=== PATIENT | male | born 1950 | race Caucasian/White ===

== ENCOUNTER 2024-03-05 09:18 | Day surgery (SDC) | payer OTHER, SELFPAY ==
[2024-03-05] VITALS (17 sets, daily range): BP systolic 136–183; BP diastolic 73–104; BMI 31.6
[2024-03-05] MEDS: NSS 270 ML IV (10:31)
[2024-03-05] MEDS: LOW STRENGTH ASPIRIN 243 MG PO (10:34)
[2024-03-05 10:46] LABS: Glucose - Point of Care 164 mg/dl (70-99)
[2024-03-05 12:02] LABS: ACT-LR - POC 334 Seconds (116-155)
[2024-03-05 12:23] LABS: ACT-LR - POC 276 Seconds (116-155)
[2024-03-05 12:40] LABS: ACT-LR - POC 216 Seconds (116-155)
[2024-03-05] MEDS: ZESTRIL 20 MG PO (13:30)
[2024-03-05] MEDS: APRESOLINE 25 MG PO (13:30)
[2024-03-05 13:38] LABS: Glucose - Point of Care 119 mg/dl (70-99)
--- NOTE | 2024-03-05 14:15 | ITS.CL.ANGIO ---
[employer] - Angioplasty
Angioplasty
Procedure Report:
LEFT HEART CATHETERIZATION
Date of Procedure: 03/05/2024
Procedures performed:
1: Coronary angiography
2: Left ventricular hemodynamic assessment
3: Complex percutaneous coronary intervention of the functional chronic total occlusion of the right coronary artery with placement of a 3.0 x 23 mm Xience drug-eluting stent
Primary Care Physician: Dr. Jhonny Marino
Primary Cardiovascular Surgeon: Dr. Rohan Crawford
INDICATION: The patient is a 73-year-old man with a past medical history significant for hypertension, diabetes mellitus, hyperlipidemia, obstructive sleep apnea and progressive exertional dyspnea with chest tightness suspicious for new angina.
ACCESS: The patient was prepped and draped in usual sterile fashion. A 6 [place] sheath was placed in the right radial artery using the Seldinger over the wire technique.
HEMODYNAMIC FINDINGS (mmHg):
LV(s/d,EDP): 120/4, 21
Ao(s/d,m): 120/72, 94
ANGIOGRAPHIC FINDINGS:
Single-plane Left Ventriculography in [place] Projection: Not done. Echo on February 05 was benign with mild LVH, normal LV systolic function and no significant valvular disease.
Coronary Angiography:
Dominance: Right
Left Main: Medium caliber, widely patent.
Left Anterior Descending: The left anterior descending artery is a medium caliber vessel that is heavily calcified in the midportion. The LAD has diffuse moderate luminal irregularities with at worst a smooth 50-60% stenosis in the midportion at
the takeoff of the 2 small distal diagonal branches. Both these vessels have smooth 70% ostial stenoses with normal flow and small caliber vessels. The distal LAD gives rise to a very prominent collateral which fills the PDA.
Ramus intermedius: Large caliber ramus intermedius branch that bifurcates into 2 medium caliber vessels that have moderate luminal irregularities with normal flow.
Left Circumflex: The circumflex has a sharp takeoff from the left main. It is medium caliber and gives rise to a small to medium caliber first obtuse marginal branch. This vessel has a smooth 60 to 70% mid stenosis with normal distal flow. The
distal circumflex trifurcates into 3 small to medium caliber vessels that are patent with normal flow.
Right Coronary: The right coronary artery is a large-caliber vessel that is heavily calcified with prominent luminal irregularities in the proximal and midportion. This is followed by a functional chronic occlusion at the acute margin. Bridging
collaterals fill the distal vessel faintly. The posterior descending artery has competitive flow from left to right collaterals.
Percutaneous Coronary Intervention (PCI): In light of the above angiographic findings and his new symptoms with the resting flow abnormality in the right coronary artery, I elected to attempt a PCI of the subtotal occlusion. The patient was given
aspirin and unfractionated heparin. A loading dose of clopidogrel 600 mg was given on the table at the end of the successful intervention. A 6 [place] AL 0.75 was used to engage the right coronary artery. Attempts to cross the occlusion with a
Hi-Torque floppy wire and Whisper wire were not successful. Ultimately a Fielder XT was successfully used to cross the microchannel. Attempts to advance a balloon were initially unsuccessful. A 6 [place] Guideliner was employed for more support
and ultimately a 1.5 mm balloon was used to predilate the lesion and restore antegrade normal flow. The lesion was then predilated with a 2.0 and then a 2.5 mm diameter noncompliant balloon. Ultimately a 3.0 x 23 mm Xience drug-eluting stent was
deployed at the lesion. The stent was postdilated with a 3.0 mm diameter noncompliant balloon at 20 gabrielle. Care was taken to stay within the stented margins.
FINAL RESULT: 0% in-stent residual stenosis with an outstanding angiographic result and normal distal flow in the posterior left ventricular branch and the posterior descending artery.
Fluoroscopy Time (min): 19.6
Radiation Dose (mGy): 159
DAP (Gy.cm2): 2066
Closure device: None. A TR band was applied for hemostasis at the right wrist.
Complications: None.
ASSESSMENT:
1: Successful PCI of the right coronary artery with placement of a single drug-eluting stent as described above.
2: Residual moderate left coronary disease with obstructive small branch vessel disease. I would favor medical therapy for this.
CONCLUSIONS and RECOMMENDATIONS:
1: Routine post drug-eluting stent medical therapy and monitoring. Uninterrupted dual antiplatelet therapy for at least 1 year with aspirin 81 mg daily indefinitely.
2: Close clinical follow-up as scheduled.
3: Medical therapy for hypertension and coronary artery disease.
Harley Pittman M.D.
Copy to: Dr. Jhonny Marino
--- NOTE | 2024-03-05 15:41 | W.PN.UPDATE ---
Update Note
Progress Note Update
73 yo WM s/p PCI RCA (Same day). He feels good, no cp, sob, kennedy diet, voiding, amb w/o dizziness, EKG SB no ST changes, R rad site with TR band in place. He will be on DAPT ASA/Plavix. He will hold Metformin 48 hrs post procedure. He will limit the
use of ibuprofen and use tylenol ES as needed for joint pains. Cardiac rehab c/s. He will f/u Dr. Crawford in 1 mo. He is for d/c home after 6pm.
Procedures performed:
1: Coronary angiography
2: Left ventricular hemodynamic assessment
3: Complex percutaneous coronary intervention of the functional chronic total occlusion of the right coronary artery with placement of a 3.0 x 23 mm Xience drug-eluting stent
Primary Care Physician: Dr. Jhonny Marino
Primary Bobtailer: Dr. Rohan Crawford
INDICATION: The patient is a 73-year-old man with a past medical history significant for hypertension, diabetes mellitus, hyperlipidemia, obstructive sleep apnea and progressive exertional dyspnea with chest tightness suspicious for new angina.
== END 2024-03-05 18:10 | disposition home or self-care (01) ==
LOC: CATH 09:18
PROVIDERS: ATTENDING PHYSICIAN Internal Medicine Interventional Cardiology; FAMILY PHYSICIAN Family Medicine; OTHER PHYSICIAN Internal Medicine Cardiovascular Disease
DX: I25.10 Atherosclerotic heart disease of native coronary artery without angina pectoris (principal); I25.82 Chronic total occlusion of coronary artery; G47.33 Obstructive sleep apnea (adult) (pediatric); E78.5 Hyperlipidemia, unspecified; E11.9 Type 2 diabetes mellitus without complications; I10 Essential (primary) hypertension; Z79.82 Long term (current) use of aspirin; Z79.02 Long term (current) use of antithrombotics/antiplatelets
CPT/HCPCS: 82962; 85347; 93005; 93458; C1725; C1769; C1874; C1887; C1894; C9600; Q9967